=== PATIENT | female | born 1980 | race Caucasian/White ===

== ENCOUNTER 2018-02-06 15:34 | Observation (INO) ==
[2018-02-06] MEDS ORDERED: NITROGLYCERIN 2% OINT 1 INCH/GM PACK TOP STA (17:00)
[2018-02-06] MEDS ORDERED: ONDANSETRON 4 MG/2 ML VIAL IV STA (17:00)
[2018-02-06] MEDS ORDERED: ALUM/MAG/SIMETH/LIDO VISC 1:1 30 ML BOTTLE PO STA (17:00)
[2018-02-06] MEDS ORDERED: fentaNYL 100 MCG/2 ML VIAL IV STA (17:09)
[2018-02-06 17:21] LABS: Basophils # 0.1 10*3/uL (0.0-0.2); Basophils % 0.5 % (0.0-0.8); Eosinophils # 0.1 10*3/uL (0.0-0.87); Eosinophils % 0.7 % (0.00-10.9); Hematocrit 45.8 VOL% (35.7-47.0); Hemoglobin 15.3 GM/DL (12.0-16.0); Immature Granulocytes % 0.3 %; Immature Granulocytes Absolute 0.04 #; Lymphocytes # 2.7 10*3/uL (1.4-4.0); Lymphocytes % 22.6 % (21.3-54.2); Mean Corpuscular HGB Conc 33.4 GM/DL (32-36); Mean Corpuscular Hemoglobin 29 PG (27-34); Mean Corpuscular Volume 88.1 FL (87-102); Mean Platelet Volume 10.6 FL (9.6-12.0); Monocytes # 0.8 10*3/uL (0.11-0.8); Monocytes % 6.4 % (1.7-12.7); Neutrophils # 8.2 10*3/uL (1.4-7.4); Neutrophils % 69.5 % (38.7-73.9); Platelet Count 247 T/CUMM (130-400); Red Cell Distribution Width 15.5 % (9.3-17.3); White Blood Count 11.8 T/CUMM (4-12)
[2018-02-06 17:53] LABS: Alanine Aminotransferase 16 U/L (13-56); Albumin 3.7 G/DL (3.4-5.0); Alkaline Phosphatase 87 U/L (45-117); Aspartate Amino Transferase 14 U/L (0-37); Bilirubin,Total < 0.39 MG/DL (0.2-1.0); Blood Urea Nitrogen 9 MG/DL (7-18); Calcium 8.7 MG/DL (8.5-10.1); Glucose 91 MG/DL (74-106); Osmolality,Calculated 281.1 MOS/KG (273-304); Potassium 3.8 MMOL/L (3.5-5.1); Sodium 142 MMOL/L (136-145); Total Protein 7.3 G/DL (6.4-8.3)
[2018-02-06 18:06] LABS: Apearance,Urine Slightly Hazy (Clear); Bacteria,Urine Occasional /HPF (Few); Bilirubin,Urine Negative (Negative); Blood, Urine Moderate mg/dL (Negative); Glucose,Urine (UA) Negative (Negative); Ketones,Urine Negative (Negative); Mucus,Urine Occasional /LPF (Occasional); Nitrite,Urine Negative (Negative); Protein,Urine Negative; RBC,Urine 3 /HPF (0-4); Squamous Epithelial Cell,Urine Occasional /HPF (0-10); Urine Color Yellow (Yellow); Urine Specific Gravity 1.009 (1.001-1.035); WBC,Urine 1 /HPF (0-6)
[2018-02-06 18:15] LABS: INR 0.9; PT Patient Result 9.9 SECS
[2018-02-06 18:18] LABS: Barbiturates Screen,Urine Negative (Negative); Benzodiazepines Screen,Urine Negative (Negative); Cannabinoid Screen,Urine Positive (Negative); Opiate Screen,Urine Negative (Negative); Phencyclidine Screen,Urine Negative (Negative)
[2018-02-06] MEDS ORDERED: GLUCAGON 1 MG VIAL IM PRN (18:43)
[2018-02-06] MEDS ORDERED: ONDANSETRON 4 MG/2 ML VIAL IV PRN (18:43)
[2018-02-06] MEDS ORDERED: ACETAMINOPHEN 325 MG TABLET PO PRN (18:43)
[2018-02-06] MEDS ORDERED: DEXTROSE 50% 25 GM/50 ML VIAL IV PRN (18:43)
[2018-02-06] MEDS ORDERED: LORazepam 0.5 MG TABLET PO PRN (18:49)
[2018-02-06] MEDS: ATORVASTATIN 20 MG TABLET PO SCH (21:10)
[2018-02-06] MEDS: INSULIN LISPRO 100 UNIT/ML SUBCUT SCH (21:12)
[2018-02-06] MEDS: ZALEPLON 5 MG CAPSULE PO PRN (22:11)
[2018-02-06] MEDS: NITROGLYCERIN 2% OINT 1 INCH/GM PACK TOP SCH (22:11)
[2018-02-07 00:55] LABS: Basophils % 0.4 % (0.0-0.8); Eosinophils # 0.1 10*3/uL (0.0-0.87); Eosinophils % 0.8 % (0.00-10.9); Hematocrit 39.5 VOL% (35.7-47.0); Hemoglobin 13.3 GM/DL (12.0-16.0); Immature Granulocytes % 0.4 %; Immature Granulocytes Absolute 0.04 #; Lymphocytes # 2.7 10*3/uL (1.4-4.0); Lymphocytes % 25.4 % (21.3-54.2); Mean Corpuscular HGB Conc 33.7 GM/DL (32-36); Mean Corpuscular Hemoglobin 29 PG (27-34); Mean Corpuscular Volume 86.8 FL (87-102); Mean Platelet Volume 10.4 FL (9.6-12.0); Monocytes # 0.7 10*3/uL (0.11-0.8); Monocytes % 6.8 % (1.7-12.7); Neutrophils % 66.2 % (38.7-73.9); Platelet Count 200 T/CUMM (130-400); Red Blood Count 4.55 MC/CUMM (3.8-5.5); Red Cell Distribution Width 15.4 % (9.3-17.3); White Blood Count 10.5 T/CUMM (4-12)
[2018-02-07 01:08] LABS: Calcium 8.1 MG/DL (8.5-10.1); Osmolality,Calculated 282.1 MOS/KG (273-304); Potassium 3.5 MMOL/L (3.5-5.1); Risk Ratio 3.52; Thyroid Stimulating Hormone 2.14 uIU/ml (0.358-3.74); VLDL CHOLESTEROL 17.8 MG/DL
[2018-02-07] MEDS: NITROGLYCERIN 2% OINT 1 INCH/GM PACK TOP SCH ×7 (01:35→21:30)
[2018-02-07] MEDS: INSULIN LISPRO 100 UNIT/ML SUBCUT SCH ×4 (07:54→21:31)
[2018-02-07] MEDS ORDERED: HydrOXYzine PAMOATE 50 MG CAPSULE PO PRN (08:44)
[2018-02-07] MEDS ORDERED: ENOXAPARIN 40 MG/0.4 ML SYRINGE SUBCUT SCH (09:00)
[2018-02-07] MEDS: ASPIRIN EC 325 MG TABLET PO SCH (09:05)
[2018-02-07] MEDS: PANTOPRAZOLE 40 MG TABLET PO SCH (09:05)
[2018-02-07] MEDS: NICOTINE 21 MG/24 HR PATCH TRANSDERM SCH (09:05)
[2018-02-07] MEDS: LISINOPRIL 5 MG TABLET PO SCH (09:05)
[2018-02-07] MEDS: MULTIVITAMIN (BEROCCA) TABLET PO SCH (09:06)
[2018-02-07] MEDS: THIAMINE 200 MG/2 ML VIAL IV SCH (10:31)
[2018-02-07] MEDS ORDERED: DIAZEPAM 5 MG TABLET PO ONE (13:37)
[2018-02-07] MEDS ORDERED: POTASSIUM CHLORIDE RIDER 10 MEQ in PREMIX 1 EACH IV PRN (13:37)
[2018-02-07] MEDS ORDERED: diphenhydrAMINE CAP 25 MG CAPSULE PO ONE (13:37)
[2018-02-07] MEDS ORDERED: MAGNESIUM SULF RIDER 2 GM in PREMIX 1 EACH IV PRN (13:37)
[2018-02-07] MEDS ORDERED: methylPREDNISolone SOD SUC 125 MG/2 ML VIAL IV ONE (13:39)
[2018-02-07] MEDS: SODIUM CHLORIDE 0.45% 1,000 ML IV SCH (14:34)
[2018-02-07] MEDS ORDERED: LIDOCAINE 1% 20 ML VIAL ONE (14:45)
[2018-02-07] MEDS ORDERED: NITROGLYCERIN DRIP 50 MG/250 ML BOTTLE IV ONE (14:45)
[2018-02-07] MEDS ORDERED: VERAPAMIL 5 MG/2 ML VIAL ONE (14:45)
[2018-02-07] MEDS ORDERED: MIDAZOLAM 2 MG/2 ML VIAL ONE (14:49)
[2018-02-07] MEDS ORDERED: fentaNYL 100 MCG/2 ML VIAL ONE (14:50)
[2018-02-07] MEDS: ATORVASTATIN 20 MG TABLET PO SCH (21:30)
[2018-02-07] MEDS: ZALEPLON 5 MG CAPSULE PO PRN (22:50)
[2018-02-08] MEDS: NITROGLYCERIN 2% OINT 1 INCH/GM PACK TOP SCH ×3 (00:34→11:29)
[2018-02-08] MEDS: SODIUM CHLORIDE 0.45% 1,000 ML IV SCH (00:34)
[2018-02-08 06:21] LABS: Basophils % 0.1 % (0.0-0.8); Hematocrit 40.9 VOL% (35.7-47.0); Hemoglobin 13.6 GM/DL (12.0-16.0); Immature Granulocytes % 0.4 %; Immature Granulocytes Absolute 0.06 #; Lymphocytes # 1.4 10*3/uL (1.4-4.0); Lymphocytes % 9.2 % (21.3-54.2); Mean Corpuscular HGB Conc 33.3 GM/DL (32-36); Mean Corpuscular Hemoglobin 29 PG (27-34); Mean Corpuscular Volume 86.7 FL (87-102); Mean Platelet Volume 10.6 FL (9.6-12.0); Monocytes # 0.8 10*3/uL (0.11-0.8); Monocytes % 5.4 % (1.7-12.7); Neutrophils % 84.9 % (38.7-73.9); Platelet Count 222 T/CUMM (130-400); Red Blood Count 4.72 MC/CUMM (3.8-5.5); Red Cell Distribution Width 15.1 % (9.3-17.3); White Blood Count 15.3 T/CUMM (4-12)
[2018-02-08 06:49] LABS: Calcium 8.3 MG/DL (8.5-10.1); Osmolality,Calculated 280.3 MOS/KG (273-304); Potassium 3.6 MMOL/L (3.5-5.1)
[2018-02-08] MEDS: INSULIN LISPRO 100 UNIT/ML SUBCUT SCH ×2 (08:27→11:29)
[2018-02-08 08:37] VITALS: BP 115/67
[2018-02-08] MEDS: NICOTINE 21 MG/24 HR PATCH TRANSDERM SCH (08:54)
[2018-02-08] MEDS: MULTIVITAMIN (BEROCCA) TABLET PO SCH (08:55)
[2018-02-08] MEDS: PANTOPRAZOLE 40 MG TABLET PO SCH (08:55)
[2018-02-08] MEDS: LISINOPRIL 5 MG TABLET PO SCH (08:55)
[2018-02-08] MEDS: ASPIRIN EC 325 MG TABLET PO SCH (08:55)
[2018-02-08] MEDS: THIAMINE 200 MG/2 ML VIAL IV SCH (08:56)
== END 2018-02-08 11:37 | disposition home or self-care (01) ==
LOC: N.EDINP 15:34 → N.ED 15:34 → N.TELEN 19:31
PROVIDERS: ADMIT Internal Medicine; ATTEND Internal Medicine
PROC: CLCCHCL (ICD-10-PCS; 2018-02-07 14:45)